=== PATIENT | female | born 1945 | race Two or more races ===

== ENCOUNTER 2024-03-16 17:09 | Emergency (ER) | payer OTHER ==
[~2024-03-16] VITALS: Ht 162.6 cm; Wt 71.7 kg
[2024-03-16] MEDS ORDERED: COZAAR100 MG (17:23)
[2024-03-16] MEDS ORDERED: METFORMIN HCL500 MG (17:23)
[2024-03-16] MEDS ORDERED: ORPHENADRINE CITRATE 30 MG/ML AMPUL ONE (19:27)
[2024-03-16] MEDS ORDERED: KETOROLAC TROMETHAMINE 60 MG VIAL IM ONE ×2 (19:28→19:30)
[2024-03-16] MEDS ORDERED: ORPHENADRINE CITRATE 30 MG/ML AMPUL IM ONE (19:30)
[2024-03-16] MEDS ORDERED: KETO10TA2 PO (22:15)
[2024-03-16] MEDS ORDERED: NORFLEX100MG PO (22:15)
== END 2024-03-16 22:44 | disposition home or self-care (01) ==
LOC: ER 17:10
DX: S00.93XA Contusion of unspecified part of head, initial encounter (principal); S20.219A Contusion of unspecified front wall of thorax, initial encounter; S30.1XXA Contusion of abdominal wall, initial encounter; W18.39XA Other fall on same level, initial encounter; Y93.9 Activity, unspecified; Y92.010 Kitchen of single-family (private) house as the place of occurrence of the external cause; Y99.9 Unspecified external cause status; M25.551 Pain in right hip; M25.552 Pain in left hip; R07.81 Pleurodynia; Z86.73 Personal history of transient ischemic attack (TIA), and cerebral infarction without residual deficits; Z87.09 Personal history of other diseases of the respiratory system
CPT/HCPCS: 70450; 71110; 72125; 74176; 96372; 99284; J1885; J2360

== ENCOUNTER → 2024-10-02 | Emergency (ER) | payer OTHER ==
[~2024-10-02] VITALS: Ht 162.6 cm; Wt 71.7 kg
[~2024-10-02] MED LIST: 8 HOUR650 MG PO; COZAAR100 MG; KETO10TA2 PO; KETOROLAC TROMETHAMINE 60 MG VIAL IM ONE; KETOROLAC TROMETHAMINE 60 MG VIAL IM STA; METFORMIN HCL500 MG; NORFLEX100MG PO
== END | disposition home or self-care (01) ==
LOC: ER 12:52
DX: S20.229A Contusion of unspecified back wall of thorax, initial encounter (principal); S00.93XA Contusion of unspecified part of head, initial encounter; W19.XXXA Unspecified fall, initial encounter; Y93.89 Activity, other specified; Y92.098 Other place in other non-institutional residence as the place of occurrence of the external cause; Y99.8 Other external cause status; R51.9 Headache, unspecified; I10 Essential (primary) hypertension; E11.9 Type 2 diabetes mellitus without complications; Z79.84 Long term (current) use of oral hypoglycemic drugs

== ENCOUNTER → 2025-01-18 | Emergency (ER) | payer OTHER ==
[~2025-01-18] VITALS: Ht 162.6 cm; Wt 71.7 kg
[~2025-01-18] MED LIST changes: +0.9 % SODIUM CHLORIDE 1,000 ML IV ONE; +0.9 % SODIUM CHLORIDE 1,000 ML IV SCH; +ENALAPRILAT DIHYDRATE 1.25 MG/ML VIAL IV ONE; +ENALAPRILAT DIHYDRATE 2.5 MG/2 ML VIAL IV PRN; +FAMOTIDINE/PF 20 MG/2 ML VIAL ONE; +FAMOtidine 10 MG/ML (4ML VIAL) IV ONE; +HYDROCHLOROTHIA25 MG PO; +INSULIN REGULAR, HUMAN 1,000 UNIT/10 ML UNITS IV ONE; -KETOROLAC TROMETHAMINE 60 MG VIAL IM ONE; -KETOROLAC TROMETHAMINE 60 MG VIAL IM STA; +LABETALOL HCL 100 MG/20 ML ML ONE; +LABETALOL HCL 200 MG/40 ML VIAL IV ONE; +LISINOPRIL40 MG PO; +LevETIRAcetam 500 MG/5 ML VIAL IV ONE; +MELOXICAM7.5 MG PO; +NIFEDIPINE 10 MG CAPSULE PO ONE; +PRAMIPEXOLE E2.25 MG PO; +SITAGLIPTIN100 MG PO
[2025-01-18 15:36] LABS: BASO % 0.4 % (0.1-1.2); EOS # 0.05 (0.04-0.54); EOS % 0.5 % (0.7-7.0); HEMATOCRIT 41.1 % (34.1-44.9); HEMOGLOBIN 14.8 g/dL (11.2-15.7); LYMPH % 17.6 % (19.3-53.1); MEAN CORPUSCULAR HEMOGLOBIN 29.2 pg (25.6-32.2); MONO # 0.61 (0.24-0.82); MONO % 5.6 % (4.7-12.5); NEUT # 8.18 (1.56-6.13); NEUT % 75.5 % (34.0-71.1); PLATELET COUNT 220 K/uL (163-369); RED BLOOD COUNT 5.06 M/uL (3.93-5.22); RED CELL DISTRIBUTION WIDTH 12.9 % (11.6-14.4)
[2025-01-18 15:57] LABS: CALCIUM 9.2 mg/dL (8.5-10.1); CREATININE SERUM 1.04 mg/dL (0.55-1.02); GFR 51.38; POTASSIUM 3.53 mEq/L (3.5-5.1)
[2025-01-18 18:38] LABS: INR 0.99; PARTIAL THROMBOPLASTIN TIME 23.7 SECONDS (22.0-34.0); PROTHROMBIN TIME 10.8 SECONDS (9.0-11.5)
[2025-01-18 18:41] LABS: ALBUMIN 3.5 gm/dL (3.4-5.0); BILIRUBIN TOTAL 0.89 mg/dL (0.3-1.2); CALCIUM 9.1 mg/dL (8.5-10.1); CREATININE SERUM 0.88 mg/dL (0.55-1.02); GFR 62.31; POTASSIUM 3.12 mEq/L (3.5-5.1); TOTAL PROTEIN 6.5 gm/dL (6.4-8.2)
== END | disposition designated cancer center or children's hospital (05) ==
LOC: ER 13:47
PROVIDERS: Emergency Medicine; General Practice
DX: I60.8 Other nontraumatic subarachnoid hemorrhage (principal); R41.0 Disorientation, unspecified; E11.65 Type 2 diabetes mellitus with hyperglycemia; Z79.84 Long term (current) use of oral hypoglycemic drugs

== ENCOUNTER 2025-02-14 12:33 | Emergency (ER) | payer OTHER ==
[~2025-02-14] VITALS: Ht 162.6 cm; Wt 69.4 kg
[~2025-02-14 12:33] MED LIST changes: -0.9 % SODIUM CHLORIDE 1,000 ML IV ONE; -0.9 % SODIUM CHLORIDE 1,000 ML IV SCH; -ENALAPRILAT DIHYDRATE 1.25 MG/ML VIAL IV ONE; -ENALAPRILAT DIHYDRATE 2.5 MG/2 ML VIAL IV PRN; -FAMOTIDINE/PF 20 MG/2 ML VIAL ONE; -FAMOtidine 10 MG/ML (4ML VIAL) IV ONE; -INSULIN REGULAR, HUMAN 1,000 UNIT/10 ML UNITS IV ONE; -LABETALOL HCL 100 MG/20 ML ML ONE; -LABETALOL HCL 200 MG/40 ML VIAL IV ONE; -LevETIRAcetam 500 MG/5 ML VIAL IV ONE; -NIFEDIPINE 10 MG CAPSULE PO ONE
[2025-02-14] MEDS ORDERED: BASAGLAR T100 UNIT/1 (13:21)
[2025-02-14] MEDS ORDERED: LYSIPLEX PLUS1 EACH (13:21)
[2025-02-14] MEDS ORDERED: ZOLOFT50 MG (13:22)
[2025-02-14] MEDS ORDERED: FARXIGA5 MG (13:22)
[2025-02-14] MEDS ORDERED: HYDRALAZINE HC100 MG PO (13:23)
[2025-02-14] MEDS ORDERED: CARDIZEM CD120 MG (13:23)
[2025-02-14] MEDS ORDERED: LIPITOR40 M1 (13:23)
[2025-02-14] MEDS ORDERED: 0.9 % SODIUM CHLORIDE 1,000 ML IV SCH (13:45)
[2025-02-14 14:25] LABS: BASO % 0.4 % (0.1-1.2); EOS # 0.08 (0.04-0.54); EOS % 1.5 % (0.7-7.0); LYMPH # 1.85 (1.18-3.74); LYMPH % 33.6 % (19.3-53.1); MEAN PLATELET VOLUME 10.40 fl (9.4-12.4); MONO # 0.41 (0.24-0.82); MONO % 7.5 % (4.7-12.5); NEUT # 3.13 (1.56-6.13); NEUT % 56.8 % (34.0-71.1); RED CELL DISTRIBUTION WIDTH 13.1 % (11.6-14.4)
[2025-02-14 14:45] LABS: URINE APPEARANCE Clear; URINE BILIRRUBIN Negative (NEGATIVE); URINE BLOOD Negative; URINE COLOR Yellow; URINE GLUCOSE Negative (NEGATIVE); URINE KETONE Negative (NEGATIVE); URINE LEUKOCYTE Negative; URINE NITRATE Negative; URINE UROBILINOGEN 1.0 E.U./dl
[2025-02-14 14:46] LABS: URINE BACTERIA 62.3 uL (0.0-1933); URINE EPITHELIAL CELLS 28.7 uL (0.0-38.8); URINE RBC 6.0 uL (0.0-20.8); URINE WBC 5.0 uL (0.0-23.2)
[2025-02-14 14:47] LABS: URINE CAST 0.87 uL (0.0-1.40); URINE PROTEIN 300 (NEGATIVE)
[2025-02-14 14:48] LABS: BUN CREA RATIO 26.0 (7.0-25.0); CREATININE SERUM 0.82 mg/dL (0.55-1.02); GFR 67.6; GLUCOSE FASTING 136.0 mg/dL (65-100); OSMOLALITY SERUM 290.0 MOSM/KG (275-295)
[2025-02-14] MEDS ORDERED: PROBIOTIC1 EAC2 PO (18:19)
[2025-02-14] MEDS ORDERED: BENZONATATE200 M1 PO (18:19)
[2025-02-14] MEDS ORDERED: PEPCID AC20 MG PO (18:19)
[2025-02-14] MEDS ORDERED: LEVALBUTER0.63 MG/3 IH (18:19)
== END 2025-02-14 18:29 | disposition home or self-care (01) ==
LOC: ER 13:39
PROVIDERS: Emergency Medicine
DX: K52.9 Noninfective gastroenteritis and colitis, unspecified (principal); E11.9 Type 2 diabetes mellitus without complications; Z79.4 Long term (current) use of insulin; I10 Essential (primary) hypertension

== ENCOUNTER 2025-05-08 18:04 | Emergency (ER) | payer OTHER ==
[~2025-05-08] VITALS: Ht 134.6 cm; Wt 69.9 kg
[~2025-05-08 18:04] MED LIST changes: +BASAGLAR T100 UNIT/1; +BENZONATATE200 M1 PO; +CARDIZEM CD120 MG; +FARXIGA5 MG; +HYDRALAZINE HC100 MG PO; +LEVALBUTER0.63 MG/3 IH; +LIPITOR40 M1; +LYSIPLEX PLUS1 EACH; +PEPCID AC20 MG PO; +PROBIOTIC1 EAC2 PO; +ZOLOFT50 MG
[2025-05-08 18:56] VITALS: BP 170/70; O2SAT 97
[2025-05-08] MEDS ORDERED: LANTUS SOL100 UNIT/1 SQ (18:56)
[2025-05-08] MEDS ORDERED: TRAMADOL HCL 50 MG TABLET PO STA (19:11)
[2025-05-08 20:13] LABS: BASO % 0.7 % (0.1-1.2); EOS # 0.19 (0.04-0.54); EOS % 2.8 % (0.7-7.0); LYMPH # 2.48 (1.18-3.74); LYMPH % 36.2 % (19.3-53.1); MEAN PLATELET VOLUME 10.30 fl (9.4-12.4); MONO # 0.47 (0.24-0.82); MONO % 6.9 % (4.7-12.5); NEUT # 3.65 (1.56-6.13); NEUT % 53.3 % (34.0-71.1); RED CELL DISTRIBUTION WIDTH 13.0 % (11.6-14.4)
[2025-05-08 20:57] LABS: ALT/SGPT 22.0 U/L (12-78); AST/SGOT 20.0 U/L (15-37); BILIRUBIN TOTAL 0.74 mg/dL (0.3-1.2); BUN CREA RATIO 22.0 (7.0-25.0); CREATININE SERUM 0.67 mg/dL (0.55-1.02); GFR 85.12; GLOBULINA 3.5 G/DL (2.4-3.5); GLUCOSE FASTING 144.0 mg/dL (65-100); OSMOLALITY SERUM 292.0 MOSM/KG (275-295)
[2025-05-08 21:28] LABS: URINE APPEARANCE Cloudy; URINE BILIRRUBIN Negative (NEGATIVE); URINE BLOOD Negative; URINE COLOR Yellow; URINE GLUCOSE Negative (NEGATIVE); URINE KETONE Negative (NEGATIVE); URINE LEUKOCYTE Moderate; URINE NITRATE Negative; URINE UROBILINOGEN 1.0 E.U./dl
[2025-05-08 21:32] LABS: URINE BACTERIA 487.1 uL (0.0-1933); URINE EPITHELIAL CELLS 4.3 uL (0.0-38.8); URINE RBC 8.6 uL (0.0-20.8); URINE WBC 1815.7 uL (0.0-23.2)
[2025-05-08 21:59] LABS: URINE CAST 0.87 uL (0.0-1.40); URINE PROTEIN 300 (NEGATIVE)
[2025-05-08] MEDS ORDERED: CEFTRIAXONE SODIUM 1,000 MG VIAL IM STA (22:23)
[2025-05-08] MEDS ORDERED: CEFTRIAXONE SODIUM 1,000 MG VIAL ONE (22:31)
== END 2025-05-08 22:42 | disposition home or self-care (01) ==
LOC: ER 18:04
PROVIDERS: General Practice
DX: N39.0 Urinary tract infection, site not specified (principal); I10 Essential (primary) hypertension; E11.9 Type 2 diabetes mellitus without complications; Z79.84 Long term (current) use of oral hypoglycemic drugs; R53.81 Other malaise

== ENCOUNTER 2025-06-13 20:13 | Inpatient (IN) | payer OTHER ==
[~2025-06-13] VITALS: Ht 147.3 cm; Wt 69.9 kg
[~2025-06-13 20:13] MED LIST changes: +LANTUS SOL100 UNIT/1 SQ
[2025-06-13] MEDS ORDERED: ORPHENADRINE CITRATE 30 MG/ML AMPUL IM STA (20:58)
[2025-06-13] MEDS ORDERED: METHYLPREDNISOLONE SOD SUCC 40 MG VIAL IV STA (20:58)
[2025-06-13 23:01] LABS: BASO % 0.4 % (0.1-1.2); EOS # 0.11 (0.04-0.54); EOS % 1.5 % (0.7-7.0); LYMPH # 2.30 (1.18-3.74); LYMPH % 31.3 % (19.3-53.1); MEAN PLATELET VOLUME 10.70 fl (9.4-12.4); MONO # 0.46 (0.24-0.82); MONO % 6.3 % (4.7-12.5); NEUT # 4.44 (1.56-6.13); NEUT % 60.2 % (34.0-71.1); RED CELL DISTRIBUTION WIDTH 13.0 % (11.6-14.4)
[2025-06-13] MEDS ORDERED: METHYLPREDNISOLONE SOD SUCC 40 MG VIAL ONE (23:04)
[2025-06-13] MEDS ORDERED: ORPHENADRINE CITRATE 30 MG/ML AMPUL ONE (23:04)
[2025-06-13 23:19] LABS: INR 0.96
[2025-06-13 23:53] LABS: BUN CREA RATIO 23.0 (7.0-25.0); CREATININE SERUM 0.8 mg/dL (0.55-1.02); GFR 69.37; GLUCOSE FASTING 158.0 mg/dL (65-100); OSMOLALITY SERUM 292.0 MOSM/KG (275-295)
[2025-06-13 23:57] LABS: TSH 0.26 uIU/mL (0.358-3.74)
[2025-06-14] VITALS (9 sets, daily range): BP systolic 135–172; BP diastolic 62–90; O2SAT 94–100
[2025-06-14] MEDS ORDERED: NITROGLYCERIN IN 5 % DEXTROSE 50 MG/250 ML BOTTLE IV ONE (00:42)
[2025-06-14] MEDS ORDERED: NITROGLYCERIN 250 ML IV SCH (00:45)
[2025-06-14] MEDS ORDERED: ACETAMINOPHEN 500 MG GEL..CAP PO ONE (04:30)
[2025-06-14] MEDS ORDERED: CHLORHEXIDINE GLUCONATE 120 ML BOTTLE TOP ONE (10:09)
[2025-06-14] MEDS ORDERED: 0.9 % SODIUM CHLORIDE 1,000 ML IV SCH (11:00)
[2025-06-14] MEDS ORDERED: ATORVASTATIN CALCIUM 40 MG TABLET PO SCH (11:04)
[2025-06-14] MEDS ORDERED: FAMOTIDINE/PF 20 MG in 0.9 % SODIUM CHLORIDE 8 ML IV PUSH SCH (11:07)
[2025-06-14] MEDS ORDERED: CLOPIDOGREL BISULFATE 75 MG TABLET PO SCH (11:08)
[2025-06-14] MEDS ORDERED: ENOXAPARIN SODIUM 60 MG/0.6 ML SYRINGE SUBCUTANEO SCH (11:09)
[2025-06-14] MEDS ORDERED: ASPIRIN 325 MG TABLET PO ONE (11:15)
[2025-06-14] MEDS ORDERED: DEXTROSE 50 % IN WATER 0.5 G/ML DISP.SYRIN IV PRN (11:15)
[2025-06-14] MEDS ORDERED: ACETAMINOPHEN 500 MG GEL..CAP PO PRN (11:15)
[2025-06-14] MEDS ORDERED: POTASSIUM CHLORIDE 20MEQ/100ML H2O PB IV ONE ×2 (11:15→11:37)
[2025-06-14] MEDS ORDERED: INSULIN LISPRO 1,000 UNIT/10 ML UNITS SUBCUTANEO PRN (11:15)
[2025-06-14] MEDS ORDERED: CLOPIDOGREL BISULFATE 75 MG TABLET PO ONE (11:36)
[2025-06-14] MEDS ORDERED: ASPIRIN 325 MG TABLET.EC PO ONE (11:36)
[2025-06-14] MEDS ORDERED: ENOXAPARIN SODIUM 60 MG/0.6 ML SYRINGE SUBCUTANEO ONE (11:36)
[2025-06-14] MEDS ORDERED: FAMOTIDINE/PF 20 MG/2 ML VIAL ONE (11:37)
[2025-06-14] MEDS ORDERED: INSULIN LISPRO 1,000 UNIT/10 ML UNITS SUBCUTANEO ONE (12:12)
[2025-06-14 13:08] LABS: URINE APPEARANCE Cloudy; URINE BILIRRUBIN Negative (NEGATIVE); URINE BLOOD Large; URINE COLOR Yellow; URINE KETONE Trace (NEGATIVE); URINE LEUKOCYTE Negative; URINE NITRATE Negative; URINE UROBILINOGEN 1.0 E.U./dl
[2025-06-14 13:10] LABS: URINE BACTERIA 2990.2 uL (0.0-1933); URINE CAST 12.02 uL (0.0-1.40); URINE EPITHELIAL CELLS 61.0 uL (0.0-38.8); URINE RBC 773.0 uL (0.0-20.8); URINE WBC 187.5 uL (0.0-23.2)
[2025-06-14 13:40] LABS: URINE GLUCOSE >=1000 MG/DL (NEGATIVE); URINE PROTEIN 300 (NEGATIVE)
[2025-06-14 13:41] LABS: TYPE CELLS SQUAMOUS; URINE MUCUS MODERATE
[2025-06-14] MEDS ORDERED: LOSARTAN POTASSIUM 100 MG TABLET PO SCH (17:02)
[2025-06-14] MEDS ORDERED: METOPROLOL SUCCINATE 25 MG TAB.SR.24H PO SCH (17:02)
[2025-06-15] VITALS (20 sets, daily range): BP systolic 121–195; BP diastolic 48–99; O2SAT 95–100
[2025-06-15 04:49] LABS: CHOL HDL RATIO 3.6 (0-5.0); HDL 53.0 mg/dl (40-60); LDL 116.0 mg/dl (0-130); T4 FREE 1.4 NG/ML (0.76-1.46); TSH 0.549 uIU/mL (0.358-3.74); VLDL 24.0 (0-39)
[2025-06-15] MEDS ORDERED: ASPIRIN 81 MG TAB.CHEW PO SCH (09:00)
[2025-06-15] MEDS ORDERED: SERTRALINE HCL 50 MG TABLET PO SCH (09:00)
[2025-06-15] MEDS ORDERED: CHLORHEXIDINE GLUCONATE 120 ML BOTTLE TOP ONE (09:56)
[2025-06-15] MEDS ORDERED: NITROGLYCERIN IN 5 % DEXTROSE 250 ML IV SCH (11:00)
[2025-06-16] VITALS (23 sets, daily range): BP systolic 97–185; BP diastolic 45–86; O2SAT 96–100
[2025-06-16 08:15] LABS: BASO % 0.6 % (0.1-1.2); EOS # 0.07 (0.04-0.54); EOS % 1.0 % (0.7-7.0); LYMPH # 2.03 (1.18-3.74); LYMPH % 28.6 % (19.3-53.1); MEAN PLATELET VOLUME 11.70 fl (9.4-12.4); MONO # 0.68 (0.24-0.82); MONO % 9.6 % (4.7-12.5); NEUT # 4.25 (1.56-6.13); NEUT % 59.8 % (34.0-71.1); RED CELL DISTRIBUTION WIDTH 13.2 % (11.6-14.4)
[2025-06-16 08:45] LABS: BUN CREA RATIO 22.0 (7.0-25.0); CREATININE SERUM 0.72 mg/dL (0.55-1.02); GFR 78.34; GLUCOSE FASTING 118.0 mg/dL (65-100); OSMOLALITY SERUM 291.0 MOSM/KG (275-295)
[2025-06-16] MEDS ORDERED: POTASSIUM CHLORIDE IN WATER 100 ML IV NR (16:00)
[2025-06-16] MEDS ORDERED: LOPERAMIDE HCL 2 MG CAPSULE PO PRN (17:00)
[2025-06-17] VITALS (22 sets, daily range): BP systolic 120–178; BP diastolic 50–84; O2SAT 97–100
[2025-06-17 07:03] LABS: BUN CREA RATIO 26.0 (7.0-25.0); CREATININE SERUM 0.73 mg/dL (0.55-1.02); GFR 77.1; GLUCOSE FASTING 148.0 mg/dL (65-100); OSMOLALITY SERUM 296.0 MOSM/KG (275-295)
[2025-06-17] MEDS ORDERED: AMLODIPINE BESYLATE 5 MG TABLET PO SCH (17:00)
[2025-06-17] MEDS ORDERED: PATIENTS OWN MEDICATION (MEDICAMENTO EN PISO) PO SCH (18:00)
[2025-06-18] VITALS (20 sets, daily range): BP systolic 133–182; BP diastolic 48–79; O2SAT 93–100
[2025-06-18] MEDS ORDERED: AMLODIPINE BESYLATE 5 MG TABLET PO SCH (17:00)
[2025-06-18] MEDS ORDERED: ONDANSETRON HCL 2 MG/ML VIAL IV NR (19:00)
[2025-06-19] MEDS ORDERED: ISOSORBIDE DINITRATE 20 MG TABLET PO SCH (01:00)
[2025-06-19 03:56] VITALS: BP 137/59; O2SAT 100
[2025-06-19 07:01] VITALS: BP 172/65; O2SAT 100
[2025-06-19] MEDS ORDERED: ISOSORBIDE DINITRATE 10 MG TABLET PO SCH (09:00)
[2025-06-19] MEDS ORDERED: ENOXAPARIN SODIUM 40 MG/0.4 ML SYRINGE SUBCUTANEO SCH (09:00)
[2025-06-19] MEDS ORDERED: ONDANSETRON HCL 2 MG/ML VIAL IV SCH (09:00)
[2025-06-19 14:00] VITALS: BP 150/58; O2SAT 99
[2025-06-19 15:26] VITALS: BP 182/58; O2SAT 99
[2025-06-19 20:00] VITALS: BP 148/64; O2SAT 98
[2025-06-19] MEDS ORDERED: DOXAZOSIN MESYLATE 2 MG TABLET PO SCH (21:00)
[2025-06-19 23:32] VITALS: BP 133/53; O2SAT 100
[2025-06-20 04:00] VITALS: BP 121/55; O2SAT 100
[2025-06-20 07:47] VITALS: BP 126/52; O2SAT 100
[2025-06-20 12:00] VITALS: BP 142/59; O2SAT 98
[2025-06-20 15:20] VITALS: BP 138/55; O2SAT 100
[2025-06-20] MEDS ORDERED: BISACODYL 5 MG TABLET.EC PO NR (17:00)
[2025-06-20 20:00] VITALS: BP 133/59; O2SAT 98
[2025-06-20 23:44] VITALS: BP 116/59; O2SAT 96
[2025-06-21 04:00] VITALS: BP 102/50; O2SAT 94
[2025-06-21 07:44] VITALS: BP 154/59; O2SAT 99
[2025-06-21 12:00] VITALS: BP 117/52; O2SAT 100
[2025-06-21 18:25] VITALS: BP 175/73
[2025-06-21 23:11] VITALS: BP 129/55; O2SAT 100
[2025-06-22] VITALS (8 sets, daily range): BP systolic 147–172; BP diastolic 60–70; O2SAT 96–100
[2025-06-22] MEDS ORDERED: SODIUM CHLORIDE 0.45 % 1,000 ML IV SCH (17:45)
[2025-06-23] VITALS: BP 142/51; O2SAT 98
[2025-06-23 01:24] VITALS: O2SAT 97
[2025-06-23 08:00] VITALS: BP 149/68; O2SAT 96
[2025-06-23] MEDS ORDERED: METOPROLOL SUCCINATE 50 MG TAB.SR.24H PO SCH (09:00)
[2025-06-23 12:24] VITALS: O2SAT 92
[2025-06-23 16:00] VITALS: BP 156/71; O2SAT 99
[2025-06-24] VITALS (10 sets, daily range): BP systolic 128–166; BP diastolic 55–70; O2SAT 90–99
[2025-06-25 00:16] VITALS: O2SAT 90
[2025-06-25 01:09] VITALS: BP 131/62; O2SAT 97
[2025-06-25 04:00] VITALS: O2SAT 92
[2025-06-25 07:41] VITALS: BP 161/69; O2SAT 98
[2025-06-25 08:34] VITALS: O2SAT 93
[2025-06-25 11:58] VITALS: BP 142/64; O2SAT 97
[2025-06-25] MEDS ORDERED: LIPITOR40 M1 PO (15:11)
[2025-06-25] MEDS ORDERED: LOSARTAN POTAS100 MG PO (15:11)
[2025-06-25] MEDS ORDERED: HYDRALAZINE HCL50 MG PO (15:11)
[2025-06-25] MEDS ORDERED: DOXAZOSIN MESYLA2 MG PO (15:11)
[2025-06-25] MEDS ORDERED: SERTRALINE HCL50 MG PO (15:11)
[2025-06-25] MEDS ORDERED: ISORDIL10 MG PO (15:11)
[2025-06-25] MEDS ORDERED: AMLODIPINE BESYL5 MG PO (15:11)
[2025-06-25] MEDS ORDERED: TOPROL XL50 M1 PO (15:11)
[2025-06-25] MEDS ORDERED: ADULT ASPIRIN81 MG PO (15:11)
[2025-06-25] MEDS ORDERED: HYDROCHLOROTHIA25 MG PO (15:12)
[2025-06-25] MEDS ORDERED: POM (MEDICAMENTO EN PO (15:12)
== END 2025-06-25 17:58 | disposition home or self-care (01) | DRG 287 ==
LOC: ER 20:14 → ICU-2 06-14 11:09 → ICU 06-14 11:09 → SURG 06-22 14:41
PROVIDERS: General Practice; Internal Medicine; ADMIT Internal Medicine; ATTEND Internal Medicine
PROC: B246ZZZ Ultrasonography of Right and Left Heart (ICD-10-PCS; 2025-06-14)
PROC: 4A12X4Z Monitoring of Cardiac Electrical Activity, External Approach (ICD-10-PCS; 2025-06-14)
PROC: B030ZZZ Magnetic Resonance Imaging (MRI) of Brain (ICD-10-PCS; 2025-06-16)
PROC: 4A02XM4 Measurement of Cardiac Total Activity, External Approach (ICD-10-PCS; 2025-06-18)
PROC: 3E073KZ Introduction of Other Diagnostic Substance into Coronary Artery, Percutaneous Approach (ICD-10-PCS; 2025-06-18)
PROC: B211YZZ Fluoroscopy of Multiple Coronary Arteries using Other Contrast (ICD-10-PCS; principal; 2025-06-21)
PROC: 4A023N7 Measurement of Cardiac Sampling and Pressure, Left Heart, Percutaneous Approach (ICD-10-PCS; 2025-06-21)
DX: I25.10 Atherosclerotic heart disease of native coronary artery without angina pectoris (principal); I24.9 Acute ischemic heart disease, unspecified; E85.4 Organ-limited amyloidosis; I69.354 Hemiplegia and hemiparesis following cerebral infarction affecting left non-dominant side; I68.0 Cerebral amyloid angiopathy; R19.7 Diarrhea, unspecified; E87.6 Hypokalemia; K59.00 Constipation, unspecified; I11.9 Hypertensive heart disease without heart failure; E11.9 Type 2 diabetes mellitus without complications; E78.5 Hyperlipidemia, unspecified
CPT/HCPCS: 70551